=== PATIENT | male | born 1995 | race Caucasian/White ===

== ENCOUNTER 2018-02-23 12:26 | Emergency (ER) | payer SELFPAY ==
[2018-02-23 12:34] VITALS: BP 120/62
[2018-02-23] MEDS ORDERED: METHYLPREDNISOLONE INJ 125 MG/2 ML SDV IM ONE (13:12)
--- NOTE | 2018-02-23 13:17 | ER Document Report ---
HPI - HPI Pain Level: 2 Notes: Patient is a 22-year-old male with no significant past medical history who presents to the ED complaining of exposure to poison jaye versus sumac 4 days. 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 Patient states that about once a year he has to get a steroid shot and some medications. Patient states that with smaller allergic reactions he is able to control with [id number] medications, but that has been feeling over the last couple days. He has itching and has noted vesicular type lesions on his bilateral extremities. He is otherwise eating and drinking without difficulties. He is urinating normally and having normal bowel movements. Denies any drug allergies. No other concerns or complaints at this time. Denies any headache, fever, neck pain, URI, sore throat, chest pain, palpitations, syncope, cough, shortness of breath, wheeze, dyspnea, abdominal pain, nausea/vomiting/diarrhea, urinary retention, dysuria, hematuria, numbness/ tingling, muscle paralysis/weakness. - ROS Systems Reviewed and Negative: Yes All other systems reviewed and negative Past Medical History - Social History Smoking Status: Unknown if Ever Smoked Chew tobacco use (# tins/day): No Frequency of alcohol use: Occasional Drug Abuse: None Family History: Hypertension Patient has suicidal ideation: No Patient has homicidal ideation: No Renal/ Medical History: Denies: Hx Peritoneal Dialysis - Immunizations Immunizations up to date: Yes Hx Diphtheria, Pertussis, Tetanus Vaccination: Yes - 07-29-11 Vertical Provider Document - CONSTITUTIONAL Agree With Documented VS: Yes Notes: PHYSICAL EXAMINATION: GENERAL: Well-appearing, well-nourished and in no acute distress. HEAD: Atraumatic, normocephalic. EYES: Pupils equal round and reactive to light, extraocular movements intact, sclera anicteric, conjunctiva are normal. ENT: EAC clear b/l. TM's intact b/l without erythema, fluid, or perforation. Nares patent and without discharge. oropharynx clear without exudates. No tonsilar hypertrophy or erythema. Moist mucous membranes. No sinus tenderness. No angioedema or airway compromise. NECK: Normal range of motion, supple without lymphadenopathy LUNGS: Breath sounds clear to auscultation bilaterally and equal. No wheezes rales or rhonchi. HEART: Regular rate and rhythm without murmurs, rubs, gallops. Musculoskeletal: FROM to passive/active. Strength 5+/5. Extremities: No cyanosis, clubbing, or edema b/l. Peripheral pulses 2+. Capillary refill less than 3 seconds. NEUROLOGICAL: normal speech, normal gait. PSYCH: Normal mood, normal affect. SKIN: generalized weeping vesicular lesions noted. Non-tender. no abscess or purulence. no streaks. - INFECTION CONTROL TRAVEL OUTSIDE OF THE [place] IN LAST 30 DAYS: No Course - Re-evaluation Re-evalutation: 02/23/18 13:15 Patient is an afebrile, well-hydrated, 22-year-old male who presents to the ED with a rash suspect contact dermatitis secondary to plant based on H&P. Vitals are acceptable. PE is otherwise unremarkable. Solu-Medrol given IM today. I will send him home with a prednisone taper as well. Conservative measures otherwise for symptoms with close monitoring. Low suspicion for any SJS, sepsis , meningitis, necrotizing fasciitis, angioedema, airway compromise, or other systemic emergent condition at this time. Patient to monitor symptoms for any acute changes and seek medical attention if so. Conservative measures otherwise for symptoms. Recheck with your PCM in 3-5 days. Consider consult a sas bi developer. Return to the ED with any worsening/concerning symptoms otherwise as reviewed discharge. Patient is in agreement. - Vital Signs Vital signs: Temp Pulse Resp BP Pulse Ox 98.5 F 95 18 120/62 100 02/23/18 12:33 02/23/18 12:33 02/23/18 12:33 02/23/18 12:33 02/23/18 12:33 Discharge - Discharge Clinical Impression: Dermatitis Condition: Stable Disposition: HOME, SELF-CARE Instructions: Contact Dermatitis ([facility]) Additional Instructions: Keep the skin clean Wash with soap and water Tylenol/ibuprofen if needed Triple antibiotic ointment daily for any break in the skin Take medication as directed Monitor for any worsening symptoms Recheck with your PCM in 3-5 days Consider consult with dermatology for ongoing/worsening symptoms Return to the ED with any worsening symptoms and/or development of fever, headache, chest pain, palpitations, syncope, shortness of breath, trouble breathing, abdominal pain, n/v/d, abscess, purulent discharge, red streaks, worsening swelling, or other worsening symptoms that are concerning to you. Prescriptions: Prednisone 20 mg PO ASDIR #18 tablet Referrals: GRACIE BARRETT, [ACTIVE STAFF] - Follow up as needed
== END 2018-02-23 13:33 | disposition home or self-care (01) ==
LOC: ER 12:26
DX: L30.9 Dermatitis, unspecified (principal)
CPT/HCPCS: 99282; 96372; J2930